=== PATIENT | male | born 1980 | race Two or more races ===

== ENCOUNTER 2022-01-29 10:44 | Emergency (ER) | payer SELFPAY ==
[~2022-01-29] VITALS: Ht 185.4 cm; Wt 77.1 kg
[2022-01-29] MEDS ORDERED: SODIUM CHLORIDE 0.9% 1,000 ML IV ONE (11:45)
[2022-01-29 14:16] LABS: Basophils # (auto) 0.1 10 ^3/uL (0-0.2); Basophils % (auto) 1.5 % (0.0-2.0); Eosinophils # (auto) 0 10 ^3/uL (0-0.8); Eosinophils % (auto) 0.5 % (0.0-7.0); Hematocrit 42.8 % (41.0-53.0); Hemoglobin 15.2 g/dL (13.5-17.5); Lymphocytes % (auto) 23.8 % (10.0-50.0); Mean Corpuscular Hemoglobin 32.3 pg (28.0-32.0); Mean Corpuscular Hgb Conc. 35.5 g/dL (32.0-36.0); Mean Corpuscular Volume 91.1 fL (80.0-100.0); Monocytes # (auto) 0.7 10 ^3/uL (0-1.3); Monocytes % (auto) 17.3 % (0.0-12.0); Neutrophils # (auto) 2.3 10 ^3/uL (1.6-8.6); Neutrophils % (auto) 56.9 % (37.0-80.0); Nucleated Red Blood Cells % 0.2 %; Red Cell Distribution Width 13.1 % (11.8-14.3)
[2022-01-29 14:17] LABS: INR 0.94 (0.9-1.15); Partial Thromboplastin Time 23.4 sec (23.6-33.0)
[2022-01-29 14:28] LABS: Albumin 4.1 g/dL (3.4-5.0); Calcium 8.4 mg/dL (8.5-10.1); Potassium 3.5 mmol/L (3.5-5.1)
[2022-01-29 14:31] LABS: BUN/Creatinine Ratio 25.5; Magnesium 2.3 mg/dL (1.6-2.6)
[2022-01-29 14:34] LABS: Total Protein 7.5 g/dL (6.4-8.2)
[2022-01-29 14:53] LABS: Blood Alcohol 330.2 mg/dL (0-5)
[2022-01-29] MEDS ORDERED: LORA0.5T20 PO (16:27)
[2022-01-29] MEDS ORDERED: LORazepam 2MG/ML-1ML VIAL IV ONE (17:00)
[2022-01-29 17:31] LABS: Urine Bacteria NONE SEEN /hpf (None Seen); Urine Blood 1+ /uL (Negative); Urine Mucus FEW (None Seen); Urine Specific Gravity 1.028 (1.001-1.035); Urine WBC 1 /hpf (0 - 3)
[2022-01-29 17:44] LABS: Barbiturate Scree,Urine NEGATIVE (NEGATIVE); Benzodiazephine Screen, Urine NEGATIVE (NEGATIVE); Cannabinoid Screen, Urine NEGATIVE (NEGATIVE); Cocaine Screen, Urine NEGATIVE (NEGATIVE); Opiate Scree,Urine NEGATIVE (NEGATIVE); Phencyclidine Screen, Urine NEGATIVE (NEGATIVE)
[2022-01-29 17:47] VITALS: BP 156/91
[2022-01-29 17:54] LABS: Amphetamine Screen, Urine NEGATIVE (NEGATIVE)
== END 2022-01-29 18:23 | disposition home or self-care (01) ==
LOC: ER 10:44
DX: F10.10 Alcohol abuse, uncomplicated (principal); R74.01 Elevation of levels of liver transaminase levels; F17.210 Nicotine dependence, cigarettes, uncomplicated; F12.10 Cannabis abuse, uncomplicated; Y90.8 Blood alcohol level of 240 mg/100 ml or more
CPT/HCPCS: 36415; 71045; 80053; 80307; 80320; 81001; 83690; 83735; 84484; 85025; 85610; 85730; 93005; 96361; 96374; 99285; J2060; J7030